=== PATIENT | female | born 1955 | race Caucasian/White ===

== ENCOUNTER 2021-02-03 12:40 | Inpatient (IN) ==
[2021-02-03] MEDS ORDERED: guaiFENesin 100 mg/5 ml LIQ unit dose cup PO ONE (13:28)
[2021-02-03] MEDS ORDERED: Azithromycin 500 mg/250 ml NS 500 MG/250 ML BAG IVPB ONE (14:11)
[2021-02-03] MEDS ORDERED: Dexamethasone IV 4 MG/ML VIAL 1 ml VIAL IV SLOW PU ONE (14:11)
[2021-02-03] MEDS ORDERED: cefTRIAXone 1 gm/50 mL NS BAG 1 GM/50 ML BAG IVPB ONE (14:11)
[2021-02-03 15:14] LABS: ABS Lymphocytes 0.8 10^3/ul (1.0-4.8); ABS Monocytes 0.3 10^3/ul (0-0.8); ABS Neutrophils 3.3 10^3/ul (1.5-7.7); Hematocrit 38 % (35-47); Hemoglobin 12.6 g/dL (12.0-16.0); Lymphocyte % 18.3 %; Mean Corpuscular HGB Conc 33 g/dL (31-36); Mean Corpuscular Hemoglobin 26 pg (27-31); Mean Corpuscular Volume 78 fL (80-97); Mean Platelet Volume 7.6 fL (7.4-10.4); Platelet Count 282 10^3/uL (150-450); Red Blood Count 4.93 10^6 /uL (3.70-4.87); Red Cell Distribution Width 15 % (10-15); White Blood Count 4.5 10^3/uL (3.5-10.8)
[2021-02-03 15:30] LABS: Albumin/Globulin Ratio 1.4 (1-3); C Reactive Protein 87.37 mg/L (<8.01); Calcium 8.3 mg/dL (8.6-10.3); Globulin 2.9 g/dL (2-4); Potassium 3.1 mmol/L (3.5-5.0); Total Bilirubin 0.4 mg/dL (0.2-1.0); Total Protein 6.9 g/dL (6.4-8.9); eGFR CKD-EPI 66.1 (>60)
[2021-02-03 15:32] LABS: Troponin I 0.01 ng/mL (<0.03)
[2021-02-03] MEDS ORDERED: Potassium Chlor 20 meq TAB.ER PO ONE ×2 (16:03→16:06)
[2021-02-03] MEDS ORDERED: Lactated Ringers 1000 ml BAG 1,000 ML IV ONE (16:06)
[2021-02-03 16:29] LABS: Ferritin 110.5 ng/mL (11-307)
[2021-02-03] MEDS ORDERED: Ondansetron 4 mg VIAL 2 MG/ML 2 ml VIAL IV PRN (16:45)
[2021-02-03] MEDS ORDERED: Remdesivir 100 mg Vial 200 MG in NS 0.9% 250 ml 210 ML IV ONE (16:47)
[2021-02-03 17:07] LABS: Magnesium 1.9 mg/dL (1.9-2.7)
[2021-02-03] MEDS: Enoxaparin 40 MG/0.4 ML SYR SUBCUT SCH (21:33)
[2021-02-04 06:31] LABS: ABS Lymphocytes 0.6 10^3/ul (1.0-4.8); ABS Monocytes 0.2 10^3/ul (0-0.8); ABS Neutrophils 1.4 10^3/ul (1.5-7.7); Eosinophil % 0.1 %; Hematocrit 40 % (35-47); Hemoglobin 13.2 g/dL (12.0-16.0); Lymphocyte % 28.7 %; Mean Corpuscular HGB Conc 33 g/dL (31-36); Mean Corpuscular Hemoglobin 26 pg (27-31); Mean Corpuscular Volume 78 fL (80-97); Mean Platelet Volume 7.6 fL (7.4-10.4); Nucleated Red Blood Cells % 0.2; Platelet Count 264 10^3/uL (150-450); Red Blood Count 5.07 10^6 /uL (3.70-4.87); Red Cell Distribution Width 15 % (10-15); White Blood Count 2.3 10^3/uL (3.5-10.8)
[2021-02-04 06:47] LABS: INR 1.14 (0.86-1.15)
[2021-02-04 06:49] LABS: Albumin 3.8 g/dL (3.2-5.2); Albumin/Globulin Ratio 1.3 (1-3); Calcium 8.7 mg/dL (8.6-10.3); Globulin 2.9 g/dL (2-4); Potassium 3.6 mmol/L (3.5-5.0); Total Bilirubin 0.3 mg/dL (0.2-1.0); Total Protein 6.7 g/dL (6.4-8.9)
[2021-02-04] MEDS: Venlafaxine XR 75 mg PO SCH (07:53)
[2021-02-04] MEDS ORDERED: NF: Linaclotide 145 mg CAP (NF) PO SCH (09:00)
[2021-02-04] MEDS: Enoxaparin 40 MG/0.4 ML SYR SUBCUT SCH (20:46)
[2021-02-04] MEDS: Remdesivir 100 mg Vial 100 MG in NS 0.9% 250 ml 230 ML IV SCH (20:46)
[2021-02-05] MEDS: CMCS:LINACLOTIDE 72 MCG CAP (NF) PO SCH (08:42)
[2021-02-05] MEDS: Venlafaxine XR 75 mg PO SCH (08:42)
[2021-02-05] MEDS ORDERED: Flu vaccine *QUAD* 2021-22* 0.5 ML SYRINGE IM ONE (09:00)
[2021-02-05 13:23] LABS: INR 1.19 (0.86-1.15)
[2021-02-05 13:28] LABS: Albumin/Globulin Ratio 1.4 (1-3); Calcium 8.7 mg/dL (8.6-10.3); Globulin 2.8 g/dL (2-4); Potassium 3.6 mmol/L (3.5-5.0); Total Bilirubin 0.3 mg/dL (0.2-1.0); Total Protein 6.8 g/dL (6.4-8.9); eGFR CKD-EPI 96.5 (>60)
[2021-02-05] MEDS: Remdesivir 100 mg Vial 100 MG in NS 0.9% 250 ml 230 ML IV SCH (21:36)
[2021-02-05] MEDS: Enoxaparin 40 MG/0.4 ML SYR SUBCUT SCH (21:36)
[2021-02-06 05:16] LABS: INR 1.19 (0.86-1.15)
[2021-02-06 05:17] LABS: Albumin 3.2 g/dL (3.2-5.2); Albumin/Globulin Ratio 1.5 (1-3); Globulin 2.2 g/dL (2-4); Potassium 3.3 mmol/L (3.5-5.0); Total Bilirubin 0.3 mg/dL (0.2-1.0); Total Protein 5.4 g/dL (6.4-8.9); eGFR CKD-EPI 97.5 (>60)
[2021-02-06] MEDS: Venlafaxine XR 75 mg PO SCH (08:09)
[2021-02-06] MEDS: CMCS:LINACLOTIDE 72 MCG CAP (NF) PO SCH (08:09)
[2021-02-06] MEDS ORDERED: Potassium Chlor 20 meq TAB.ER PO ONE (11:19)
[2021-02-06 13:05] VITALS: BP 124/69
== END 2021-02-06 13:55 | disposition home or self-care (01) | DRG 137 ==
LOC: ED 12:40 → EDHOLD 16:45 → MED 21:37
PROVIDERS: ADMIT Student in an Organized Health Care Education/Training Program; ATTEND Student in an Organized Health Care Education/Training Program